=== PATIENT | female | born 1930 | race Caucasian/White ===

== ENCOUNTER → 2017-01-15 | Outpatient (CLI) | payer MEDICARE, MEDICAID ==
[~2017-01-15] MED LIST: ARICEPT 5MG TAB5 MG PO; ARTIFICIAL TEAR15 M4 OP; ARTIFICIAL1 DROP/0.0 OP; ASPIRIN CHILDRE81 M1 PO; BISAC-EVAC10 MG PR; CARVEDILOL3.125 MG PO; CEFTIN500 MG PO; FERROUS SULFAT325 MG PO; HYDROCHLOROTHIA25 M1; HYOSCYAMINE0.125 M1 PO; IMODIUM 2MG. CAP2 MG PO; IRON324 MG PO; LISINOPRIL2.5 M1 PO; LOPERAMIDE2 MG PO; METOCLOPRAMIDE5 MG; MIRALAX17 GM/PACK PO; NITROGLYCERIN0.4 MG SL; NYSTATIN; OMNICEF 300 MG300 MG PO; PLAVIX75 MG PO; PRILOSEC OTC20 MG PO; PROMETHAZINE12.5 M1 PO; REMERON15 MG OR; THERAPEUTIC-M1 TAB PO; TYLENOL ES500 M1 PO; VITAMIN D31000 IU PO; ZANTAC 150150 MG PO; ZOCOR40 MG PO; [UNRECOGNIZED DRUG - CODE] RC
== END ==
LOC: LAB 16:24
DX: N89.8 Other specified noninflammatory disorders of vagina (principal)

== ENCOUNTER → 2017-02-23 | Outpatient (CLI) | payer MEDICARE, MEDICAID | LOC: LAB 17:23 | DX: N89.8 Other specified noninflammatory disorders of vagina (principal) ==